=== PATIENT | male | born 1955 | race Caucasian/White ===

== ENCOUNTER → 2017-09-29 | Day surgery (SDC) | payer OTHER ==
[~2017-09-29] VITALS: Ht 182.9 cm; Wt 104.3 kg
[~2017-09-29] MED LIST: ASPIRIN EC81 M1 PO; CENTRUM SILVER1 EAC3 PO; DAILY MULTIPLE1 EACH PO; HYCET 7.5 MG-3473 ML PO; LISINOPRIL10 M1 PO; PAXIL20 M1 PO; PROTONIX40 M3 PO; VITAMIN D2000 UNIT PO; ZOCOR20 M1 PO
--- NOTE | 2017-09-29 08:54 | Operative Report ---
Operative/Inv Procedure Report Surgery Date: 09/29/17 Name of Procedure: Open umbilical hernia repair with mesh Pre-Operative Diagnosis: Incarcerated umbilical hernia Post-Operative Diagnosis: Same Estimated Blood Loss: less than 50ml Surgeon/Python Architect: Caleb Vargas DO Anesthesia: laryngeal mask airway IV Fluids: 500 cc Drains: None Specimens: Incarcerated omentum Complications: None Condition: Stable Operative Indication: This is a 62-year-old male that presented to the office with an umbilical hernia. On exam patient was found to have a partially incarcerated umbilical hernia. An open repair with mesh was discussed in detail. All risks including but not limited to bleeding, infection, recurrence, and injury to surrounding structures were discussed in detail. The patient understood everything and decided to proceed. Operative/Procedure Note Note: The patient was brought to the operating room and placed on the table in supine position. Venodyne stockings were placed and adequate anesthesia with LMA was obtained. Patient was prepped and draped in standard surgical fashion. Approximately a 4-5 cm incision was made in the infraumbilical crease. Incision was carried through subcutaneous tissue to the fascia. At that point the umbilical stalk was circumferentially dissected and the umbilicus was detached from the hernia sac using Bovie electrocautery. Once umbilicus completely detached did note incarcerated omentum and preperitoneal fat within the hernia sac. The hernia sac and its contents were all excised using Bovie electrocautery. At the completion the hernia defect was approximately 2 cm. A 6.6 cm Covidien washoe hernia patch was opened and inserted into the abdominal cavity. The straps were lifted up in the air and secured in 4 corners using 2-0 Prolene suture. At the completion the mesh was examined and appeared to be laying flat up against anterior abdominal wall. The fascia was closed over the mesh using 0 Vicryl suture in a running fashion. Cavity was irrigated and no obvious bleeding was noted. Subcutaneous case tissue was closed using 2-0 Vicryl suture and the umbilicus was reattached to the anterior abdominal wall using 2-0 Vicryl suture as well. Skin was closed using 4-0 Monocryl. Steri- Strips and dressings were placed. The patient was successfully extubated and transferred to recovery room in stable condition. The patient tolerated the procedure well with no complications. Findings: ~2 cm defect, 6.6 cm washoe covidien hernia patch used CC: Bo NINA,Sherif Dalton
== END ==
LOC: STS 03:49
DX: K42.0 Umbilical hernia with obstruction, without gangrene (principal); E66.01 Morbid (severe) obesity due to excess calories; Z98.84 Bariatric surgery status; Z68.29 Body mass index [BMI] 29.0-29.9, adult
CPT/HCPCS: C1781; J0131; J0690; J2250